=== PATIENT | female | born 1990 | race Caucasian/White ===

== ENCOUNTER 2017-05-12 05:09 | Emergency (ER) | payer OTHER ==
[~2017-05-12] VITALS: Ht 154.9 cm; Wt 59.5 kg
[~2017-05-12 05:09] MED LIST: KLO5T PO; TRAM50TA2 PO
[2017-05-12] MEDS ORDERED: Epinephrine Racemic 2.25% 0.5 mL Inhalation Solution NEB ONE ×2 (05:16→05:20)
[2017-05-12] MEDS ORDERED: Famotidine 20 mg/50 mL NS Premix IV ONE (05:17)
[2017-05-12] MEDS ORDERED: Dexamethasone 10 mg/mL Inj ONE (05:19)
--- NOTE | 2017-05-12 05:19 | ED.REPORT ---
HPI-Allergic Reaction Date of Service May 12, 2017 ED Provider: Willie Stanford MD A 27 year old female with a history of anxiety and IV drug use presents to the ED complaining of a possible allergic reaction. The pt states that she was getting into a friends car thirty minutes ago and tripped, pitching forward and hitting the top of her hand against an object that she believes was a needle containing drugs. She subsequently noticed redness and swelling on her left hand extending up her arm and across her chest, and suspects that she is experiencing an allergic reaction to the contents of the needle. The pt states that she has not used IV drugs in 17 days. Nursing Notes Stated Complaint: BURNING/ SWELLING OF LEFT HAND Nursing Notes Reviewed: Yes Allergies: Coded Allergies: hydrocodone (Verified Allergy, Unknown, 12/18/15) ondansetron (Verified Allergy, Unknown, 12/18/15) Scheduled Famotidine (Pepcid) 20 Mg Tablet 20 MG PO BID Loratadine (Claritin) 10 Mg Capsule 10 MG PO DAILY Prednisone (PredniSONE) 20 Mg Tablet 60 MG PO DAILY Scheduled PRN Clonazepam (Clonazepam) 0.5 Mg Tablet 0.5 MG PO BID PRN PRN For Anxiety Tramadol (Tramadol) 50 Mg Tablet 100 MG PO TID PRN PRN tid diphenhydrAMINE HCl (Benadryl) 25 Mg Capsule 50 MG PO Q4 PRN PRN For Itching General Time Seen by MD: 05:18 Chief Complaint Allergic reaction Hx Obtained From: Patient Arrived By: Walk-in Onset Occurred: 1 - 4 hours ago Symptom Duration: Since onset Recent Healthcare: No recent hospitalization Similar Sx Previous: No Past Medical History Past Medical History 1. IBS 2. Dysmenorrhea 3. Ovarian cyst 4. Anxiety 5. Panic attacks Past Surgical History Colonscopy IUD Smoking History Current Every Day Smoker Social History Drug Use: IV drugs Ambulatory Status Independent Review of Systems Review of Systems Note: left hand and arm redness puncture wound to left hand Constitutional: Denies: Fever Respiratory: Denies: Non-productive cough, Shortness of breath GI: Denies: Abdominal pain, Vomiting Skin: Reports Rash Complete sys rev & neg: except as marked. Musculoskeletal: Reports: Extremity swelling Physical Exam Initial Vital Signs Vital Signs (First) Date Time Temp Pulse Resp B/P Pulse Ox O2 Delivery O2 Flow Rate FiO2 05/12/17 05:20 36.3 109 18 165/112 100 Room Air Initial VS: Reviewed General/Constitutional: Awake, Alert voice hoarse Respiratory / Chest: Atraumatic, Breath sounds NL, Breath sounds = bilat, No respiratory distress Cardiovascular: Heart rate NL, Regular rhythm, Heart sounds NL Skin: Color NL, Warm, Dry erythematous macular rash extending onto chest and back multiple fairly fresh appearing needle lacey on arms, not consistent with 17 days of abstinence Head / Eyes: Atraumatic, Normocephalic, PERRL, EOMI ENT: Atraumatic, Airway patent, Mucous membranes moist, Pharynx NL Abdomen: Atraumatic, Soft, Non-tender Neurologic: Oriented X3, Speech NL, No motor deficits, No sensory deficits Neck: Atraumatic, Supple, Full range of motion Back: Full range of motion Upper Extremity / MS: Neurologic intact, Vascular intact needle wound on the back of the left hand blanching around the area extending proximally 10 cm into the upper arm erythema that blanches in patchy erythematous macular hyperemia around the area of vasospasm Lower Extremity / Pelvis / MS: Atraumatic, Full range of motion Psychiatric: Affect NL, Mood NL Interpretation & Diagnostics Lab Results Interpretation Test 05/12/17 05:20 Hold Purple Top Tube Received (Received) Hold Blue Top Tube Received (Received) Hold Red Top Tube Received (Received) Hold [place] Top Tube Received (Received) Re-Eval/Medical Decision Med Decision/Clinical Course 27-year-old presents with red rash up the arm and blanching at the area of the allegedly accidental injection. This appears to be an alpha adrenergically active agent such as methamphetamine or cocaine. Discussed with poison control, and there is no particular literature for the use of an alpha gonzález such as phentolamine in this setting. It makes pharmacologic sense, but there is no published information. However, her blanching is fading and her rashes likewise fading after routine allergy protocol meds. Discharged now in stable and improving condition. Prednisone for three days. Claritin and Pepcid when necessary. Follow-up with PCP. Source of Hx: Old records Re-Evaluation/Progress : Time of Eval: 06:05 Patient Status: Condition improved Re-Evaluation/Progress Note: Pt rechecked, whose blanching has resolved following Benadryl. The diagnosis and plan for discharge are discussed. The pt understands and agrees with the plan. All questions are addressed at this time. Consultation #1: Call Returned at: 05:30 Note: Consulted with Poison Control regarding pt's case. Poison Control will review pt's case and call back. Consultation #2: Call Returned at: 06:14 Child And Family Services Specialist: Agrees with eval, Agrees with plan Note: Consulted with Poison Control regarding pt's case. Poison Control does not have additional recommendations. Counseled Regarding: Diagnosis, Need for follow-up, When/why to return to ED Discharge & Departure Primary Impression: Allergic reaction Encounter type: initial encounter Qualified Code: T78.40XA - Allergy, unspecified, initial encounter Additional Impression: Intravenous drug abuse Disposition: Home Discharge Condition All VS Reviewed: Yes Condition: Stable Patient Instructions: General Allergic Reaction (ED) Additional Instructions: This appears to be an allergic response. The blanching suggests that there was methamphetamine in the needle. Continue your recovery. Begin Claritin daily. Begin Pepcid twice daily. Begin prednisone three tabs daily for three days. You may take additional Benadryl if you develop worsening rash. Follow-up with your doctor in the office. You may follow up at residency clinic if needed. Return for any immediate issues with breathing or other new symptoms of concern. Referrals: Mike Sherman MD (PCP) Scribe Attestation Portions of this note were transcribed by Hong Parker. I, Dr. Stanford personally performed the history, physical exam and medical decision-making; I reviewed and confirmed the accuracy of the information in the transcribed note. copies to: Mike Sherman MD, Christopher W MD May 12, 2017 05:19 HONG PARKER May 12, 2017 05:56
[2017-05-12 05:20] VITALS: BP 165/112; PULSE 109; RESP 18; O2SAT 100
[2017-05-12] MEDS ORDERED: Dexamethasone Inj 20 MG in 0.9% Sodium Chloride-Pha MIX 50 ML IV ONE (05:20)
[2017-05-12] MEDS ORDERED: Famotidine Inj 20 MG in IV Premix 1 EACH IV ONE (05:20)
[2017-05-12] MEDS ORDERED: PRE20 PO (06:10)
[2017-05-12] MEDS ORDERED: LORA10CA PO (06:10)
[2017-05-12] MEDS ORDERED: FAMO20T PO (06:10)
[2017-05-12] MEDS ORDERED: DIPH25CA6 PO (06:11)
[2017-05-12 06:49] VITALS: BP 131/93; PULSE 81; RESP 18; O2SAT 100
== END 2017-05-12 06:49 | disposition home or self-care (01) ==
LOC: SED 05:09
DX: M79.89 Other specified soft tissue disorders (principal); R23.8 Other skin changes; T78.40XA Allergy, unspecified, initial encounter; F19.10 Other psychoactive substance abuse, uncomplicated; W22.8XXA Striking against or struck by other objects, initial encounter; Y93.89 Activity, other specified; Y99.8 Other external cause status; F17.200 Nicotine dependence, unspecified, uncomplicated; Z88.5 Allergy status to narcotic agent; Z88.8 Allergy status to other drugs, medicaments and biological substances
CPT/HCPCS: 94664; 96374; 96375; 99285; J1100; J1200; J2060; J3490